=== PATIENT | female | born 1960 | race Caucasian/White ===

== ENCOUNTER 2018-08-15 07:22 | Day surgery (SDC) | payer OTHER ==
[2018-08-15] MEDS ORDERED: LIDOCAINE 100 MG SYRINGE (09:23)
[2018-08-15] MEDS ORDERED: PROPOFOL 40 ML (09:23)
== END 2018-08-15 14:30 | disposition home or self-care (01) ==
LOC: GIL 07:22
DX: Z12.11 Encounter for screening for malignant neoplasm of colon (principal); K62.1 Rectal polyp; K64.8 Other hemorrhoids; K57.30 Diverticulosis of large intestine without perforation or abscess without bleeding
CPT/HCPCS: 45380; 88305